=== PATIENT | female | born 2005 | race Caucasian/White ===

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

== ENCOUNTER 2025-01-28 00:17 | Emergency (ER) | payer OTHER ==
[~2025-01-28] VITALS: Ht 157.5 cm; Wt 111.7 kg
[~2025-01-28 00:17] MED LIST changes: +FLUO-290 PO; -FLUO10CA16 PO; +VITMTA PO
[2025-01-28 00:19] VITALS: BP 143/94; TEMP 97.9; O2SAT 98
[2025-01-28] MEDS: FLUORESCEIN OPHTH 1 MG STRIP OD ONE (01:20)
[2025-01-28] MEDS: TETRACAINE 0.5% OPHTH SOLN 4ML OD ONE (01:20)
[2025-01-28] MEDS ORDERED: ERYT5OIN25 OP (02:00)
[2025-01-28] MEDS: ERYTHROMYCIN OPHTH OINT OD ONE (02:06)
== END 2025-01-28 02:45 | disposition home or self-care (01) ==
LOC: M ED 00:17
DX: S05.01XA Injury of conjunctiva and corneal abrasion without foreign body, right eye, initial encounter (principal); F41.9 Anxiety disorder, unspecified; Z79.2 Long term (current) use of antibiotics; Y92.9 Unspecified place or not applicable; Y93.9 Activity, unspecified; Y99.9 Unspecified external cause status

== ENCOUNTER 2025-01-31 11:14 | Day surgery (SDC) | payer OTHER ==
[~2025-01-31] VITALS: Ht 157.5 cm; Wt 110.9 kg
[~2025-01-31 11:14] MED LIST changes: +ERYT5OIN25 OP
[2025-01-31] MEDS ORDERED: MIDAZOLAM INJ 2 MG/2 ML VIAL As Ordered ONE (12:44)
[2025-01-31] MEDS ORDERED: ROCURONIUM BROMIDE 50MG/5ML VIAL As Ordered ONE (12:44)
[2025-01-31] MEDS ORDERED: ONDANSETRON 4MG 2ML VIAL As Ordered ONE (12:44)
[2025-01-31] MEDS ORDERED: dexAMETHasone 4 MG/ML 1 ML VIAL As Ordered ONE (12:44)
[2025-01-31] MEDS ORDERED: LIDOCAINE 2% 100 MG/5 ML SDV (FOR ANES.) As Ordered ONE (12:44)
[2025-01-31] MEDS ORDERED: ACETAMINOPHEN 1000MG/100ML IV BAG As Ordered ONE (12:45)
[2025-01-31] MEDS: LIDOCAINE W/EPINEPHrine 1% 20 ML VIAL As Ordered ONE (14:03)
[2025-01-31] MEDS: OXYMETAZOLINE 0.05% NASAL SPRAY As Ordered ONE (14:04)
[2025-01-31] MEDS: METHYLENE BLUE 0.5% (5 MG/ML) 10 ML AMP As Ordered ONE (14:04)
[2025-01-31] MEDS ORDERED: SUGAMMADEX SODIUM 500 MG/5 ML VIAL As Ordered ONE (14:06)
[2025-01-31] MEDS: ONDANSETRON 4MG 2ML VIAL IV PRN (15:01)
[2025-01-31] MEDS: MORPHINE 2 MG/ML 1 ML VIAL IV PRN (15:06)
[2025-01-31 15:46] VITALS: BP 130/86; TEMP 97.4; O2SAT 98
== END 2025-01-31 15:49 | disposition home or self-care (01) ==
LOC: M SDC 11:14
PROVIDERS: ATTEND Otolaryngology
DX: J34.2 Deviated nasal septum (principal); J34.3 Hypertrophy of nasal turbinates; F41.9 Anxiety disorder, unspecified; F32.A Depression, unspecified
CPT/HCPCS: 30140; 30520; 81025; J0131; J1100; J2250; J2405; J3010; Q9968